=== PATIENT | female | born 1935 | race Caucasian/White ===

== ENCOUNTER 2017-02-10 20:17 | Inpatient (IN) | payer OTHER ==
[~2017-02-10] VITALS: Ht 162.6 cm; Wt 79.8 kg
--- NOTE | 2017-02-10 20:25 | NUR ---
DR KELLY AT BEDSIDE FOR MSE.
[2017-02-10 21:17] LABS: BASOPHIL % 0.7 % (0-2); PLATELET COUNT 363 x10^3mcL (130-400)
[2017-02-10 21:27] LABS: RED CELL DISTRIBUTION WIDTH 16.6 % (11.5-14.5)
[2017-02-10 21:31] LABS: CALCIUM 8.6 mg/dL (8.5-10.1); CARBON DIOXIDE 23.7 mmol/L (21-32); CHLORIDE SERUM 103 mmol/L (98-107); GLUCOSE SERUM 125 mg/dL (74-106); POTASSIUM SERUM 4.2 mmol/L (3.5-5.1); SODIUM SERUM 136 mmol/L (136-145)
[2017-02-10 21:35] LABS: ALBUMIN 3.5 g/dL (3.4-5.0); ALKALINE PHOSPHATASE 77 U/L (46-116); ALT/SGPT 27 U/L (14-59); AST/SGOT 18 U/L (15-37); BILIRUBIN TOTAL 0.53 mg/dL (0.20-1.00); TOTAL PROTEIN, SERUM 7.3 g/dL (6.4-8.2)
--- NOTE | 2017-02-10 21:49 | NUR ---
PT MEDICATED PER DR KELLY ORDERS. PT EDUCATED ON MED AND DENIES ANY ALLERGIES TO MED. PT IV SITE PATENT NO COMPLICATIONS NOTED. PT SLEEPING BUT EASILY AWAKEN WHEN CALLING NAME. DAUGHTER AT BEDSIDE. CALL LIGHT PLACED WITHIN REACH. NO SX OF DISTRESS NOTED AT THIS TIME.
--- NOTE | 2017-02-10 22:40 | NUR ---
PT GIVEN MEDS PER DR KELLY. PT ALERT AND AWAKE TALKING TO DAUGHTER AT BEDSIDE. NO SX OF DISTRESS NOTED AT THIS TIME. PT STILL ON FULL CM, COMFORT MEASURS IN PLACE.
[2017-02-10 23:24] LABS: UA SPECIFIC GRAVITY <=1.005 (1.005-1.035); microscopic required? YES; urine erythrocyte 1+ (NEGATIVE)
[2017-02-10] MEDS ORDERED: LOSARTAN POTASS25 M1 PO (23:44)
[2017-02-10] MEDS ORDERED: METFORMIN HYDRO1 POW PO (23:44)
[2017-02-10] MEDS ORDERED: [UNRECOGNIZED DRUG - OTHER] PO (23:44)
[2017-02-10] MEDS ORDERED: AMARYL4 MG PO (23:44)
--- NOTE | 2017-02-10 23:53 | NUR ---
ADMISSION REPORT GIVEN TO SADAF SUAREZ TO CONTINUE CARE AT EXT [id number]
--- NOTE | 2017-02-11 00:07 | NUR ---
PT GIVEN PO AND IV MED PER DR FRITZ ORDERS. PT EDUCATED ON MED AND VERBALIZES UNDERSTANDING OF TEACHING. PT DENIES ALLERGIES TO MED. PT AAOX4, BREATHING WITHOUT DIFFICULTY. IV SITE PATENT WITH NO COMPLICATIONS NOTED. DAUGHTER AT BEDSIDE.
[2017-02-11 00:23] LABS: MAGNESIUM 1.6 mg/dL (1.8-2.4); PHOSPHOROUS 3.1 mg/dL (2.5-4.9)
[2017-02-11 00:24] LABS: CHOLESTEROL/HDL RATIO 3.9
--- NOTE | 2017-02-11 00:30 | NUR ---
RECEIVED PT FROM ED VIA [facility], CAME IN DUE TO PALPITATIONS. AAOX4. C/O MILD DIZZINESS. ABLE TO FOLLOW COMMANDS. SPEECH IS CLEAR. NO SOB NOTED, PLACED ON 2LPM/NC, O2 SAT=93%. LUNG SOUNDS CTA. DENIES CHEST PAIN/PRESSURE, AFIB, HR AT 146 ON THE MONITOR. C/O PALPITATIONS. C/O MILD NAUSEA. DENIES ABDOMINAL PAIN. IV SITE PATENT AND INTACT. NOTED PT HAS MILD ANXIETY. DAUGHTER AT BEDSIDE. SIDE RAILS UPX2. CALL LIGHT ON REACH. ENDORSED
[2017-02-11 00:32] VITALS: BP 126/75
[2017-02-11] MEDS ORDERED: LANTUS100 U/ML SQ (00:33)
[2017-02-11 00:34] LABS: FREE T4 1.29 ng/dL (0.76-1.46)
[2017-02-11] MEDS ORDERED: ATIVAN0.5 M1 PO (00:36)
[2017-02-11 00:38] VITALS: Ht 162.6 cm; Wt 79.8 kg
[2017-02-11 02:55] LABS: T3 TOTAL 0.98 ng/mL
[2017-02-11 05:57] VITALS: BP 130/70
[2017-02-11 06:02] LABS: BASOPHIL % 0.7 % (0-2); PLATELET COUNT 344 x10^3mcL (130-400)
--- NOTE | 2017-02-11 07:07 | NUR ---
SPOKE WITH DR. BOYD REGARDING FLUCTUATING RAPID HEART RATE. PER MD, NO CHANGE AT THIS TIME AND SHE WILL WAIT UNTIL WHOLESALE DIAMOND BROKER COMES TO SEE PATIENT BEFORE MAKING ANY MEDICATION CHANGES.
[2017-02-11 07:10] LABS: CARBON DIOXIDE 24.2 mmol/L (21-32); CHLORIDE SERUM 104 mmol/L (98-107); CREATININE SERUM 0.8 mg/dL (0.6-1.0); GLUCOSE SERUM 178 mg/dL (74-106); MAGNESIUM 1.6 mg/dL (1.8-2.4); PHOSPHOROUS 3.3 mg/dL (2.5-4.9); POTASSIUM SERUM 4.1 mmol/L (3.5-5.1); SODIUM SERUM 138 mmol/L (136-145)
--- NOTE | 2017-02-11 08:00 | NUR ---
PT RECEIVED IN BED ALERT AND ORIENTED*4.NO ACUTE DISTRESS NOTED.CARE ASSURED.ISOLATION FOR MRSA WOUND HX.VSS.AFIB ON MONITOR @ 110-130HR.PT ON 02 @ 2L VIA N/C.SKIN WARM AND DRY TO TOUCH.NEEDS ARE BEING MET. CALL LIGHT WITHIN REACH.BED IN LOW SAFE POSITION.
[2017-02-11 09:28] VITALS: BP 124/62
[2017-02-11 13:53] VITALS: BP 154/58
--- NOTE | 2017-02-11 14:16 | NUR ---
PT IN BED RESTING AT THIS TIME.FAMILY AT BEDSIDE SUPPORTIVE.VSS.AFEBRILE.ABT IN PROGRESS.2GM MAGNESIUM GIVEN ORDERED.PT ANXOIUS ABOUT GOING HOME AT THIS TIMES.PLAN OF CARE REITERATED WITH PT.
[2017-02-11 17:35] VITALS: BP 135/65
--- NOTE | 2017-02-11 18:00 | NUR ---
PT ALERT AND AT TIMES FORGETFUL.FOUND IN ROOM OPPOSITE TO HER'S BRUSHING HER TEETH IN THE BATHROOM.PT RE-ORIENTED TO PLACE AND SITUATION.NO FALL OR INJURY NOTED.CALL LIGHT PROVIDED AND PT TAUGHT TO CALL FOR ASSIST AT ALL TIMES.
--- NOTE | 2017-02-11 19:30 | NUR ---
SEEN IN BED AAOX4. USING I.S. NOTED 1500 VOLUME. DENIES PAIN. BREATHING EASY ON ROOM AIR. AFIB AT 129. DENIES PALPITATION. IVF NS TO LT HAND INFUSING WELL. PLAN OF CARE DISCUSSED. CALL LIGHT PLACED WITHIN EASY REACH. SIDERAILS UP X2. SCD TO BLE INPLACED.
[2017-02-11 21:46] VITALS: BP 141/60
--- NOTE | 2017-02-11 22:06 | NUR ---
BEDTIME MEDS GIVEN. TYLENOL PO GIVEN PER PATIENT'S REQUESTED FOR SLEEPING. WILL CONTINUE TO MONITOR.
[2017-02-12 04:00] VITALS: BP 146/65
--- NOTE | 2017-02-12 04:00 | NUR ---
PATIENT CALLED STS THAT SHE IS NOT FEELING WELL. SEEN PATIENT STANDING INSIDE THE ROOM APPEARS VERY ANXIOUS AND CRYING. DENIES CHEST PAIN. ASKED TO CALL HER DAUGHTER ARIAN. [facility] "I CAN'T BE HERE PLEASE OPEN THE WINDOW I WANT TO GO OUTSIDE I HAVE CLAUSTROPHOBIA" EMOTIONAL SUPPORT GIVEN TO PATIENT. FSBS AT BEDSIDE CHECKED =202. REFUSED MEDICATION OFFERRED FOR ANXIETY. V/S CHECKED BP 146/65, HR 152, RR 24,O2SAT 94% ON ROOM AIR, AFEBRILE.
--- NOTE | 2017-02-12 05:00 | NUR ---
PATIENT'S DAUGHTER JONATHAN IS HERE AT BEDSIDE TO COMFORT PATIENT.
--- NOTE | 2017-02-12 06:58 | NUR ---
RESTING WITH EYES CLOSE AT THIS TIME. DAUGHTER AT BEDSIDE.
--- NOTE | 2017-02-12 07:30 | NUR ---
RECEIVED PATIENT SITTING UP IN BED A/O X3, CLEAR SPEECH, DENIES SANTOS OR DIZZINESS. TELE # [address], DENIES CHEST PAIN OR PALPITATIONS. BREATHING EVEN UNLABBORED ON RA, DENIES SOB, NO DISTRESS NOTED. SKIN IS WARM CDI WITH IV TO LH INTACT INFUSING NS AT 100 ML/HR FREE FROM REDNESS AND INFILTRATION. PATIENT NOTED TO BE ANXIOUS AT TIMES, STATES SHE WANTS TO GO HOME TODAY. DAUGHTER JONATHAN AT BEDSIDE. ALL NEEDS ATTENDED TO. SAFETY PRECAUTIONS MAINTAINED. CALL LIGHT WITHIN REACH. BED IN LOW POSITION. WILL MONITOR.
--- NOTE | 2017-02-12 08:54 | NUR ---
ROUNDS MADE- DR. BURGOS, RESIDENT TEAM, CHARGE NURSE AND PRIMARY NURSE AT BEDSIDE. POC REVIEWED WITH PATIENT AND DAUGHTER AT BEDSIDE. PATIENTS HR IN 120'S, WILL HAVE QUARRYING SPECIALIST CONSULT TODAY PENDING FURTHER EVALUATION. ALL QUESTIONS AND CONCERNS ADDRESSED. WILL MONITOR.
[2017-02-12 10:18] VITALS: BP 127/62
--- NOTE | 2017-02-12 12:15 | NUR ---
PATIENT SITTING UP IN CHAIR AT BEDSIDE. DAUGHTER REMAINS AT BEDSIDE WELL. DUE MEDS GIVEN, TOLERATED WELL. ALL NEEDS ATTENDED TO. WILL MONITOR.
[2017-02-12 13:57] VITALS: BP 138/73
--- NOTE | 2017-02-12 15:48 | NUR ---
ATIVAN 0.5 MG PO GIVEN AT THIS TIME FOR ANXIETY. DR. WATSON AWARE PATIENT IS STILL AFIB WITH HR IN 140'S, NO NEW ORDERS RECEIVED. FAMILY AT BEDSIDE. WILL MONITOR.
--- NOTE | 2017-02-12 16:00 | NUR ---
DR. WATSON AT BEDSIDE TO SPEAK WITH PATIENT AND DAUGHTER JONATHAN REGARDING PATIENTS HOME MEDICATION. ALL QUESTIONS AND CONCERNS ADDRESSED.
[2017-02-12 18:01] VITALS: BP 139/83
--- NOTE | 2017-02-12 18:16 | NUR ---
RECEIVED CALL FROM [employer], STATED PATIENTS HR IS IN THE 150'S. WENT TO ASSESS PATIENT, PATIENT IS IN RESTROOM AT THIS TIME. WILL REASSESS PATIENTS BP AND HR ONCE DONE. DR. WATSON MADE AWARE.
--- NOTE | 2017-02-12 18:24 | NUR ---
PATIENT SITTING UP AT EDGE OF BED AFTER BRUSHING TEETH IN RESTROOM. ASSESSED PATIENTS VS, BP 137/87 HR 110. PATIENT DENIES ANY CHEST PAIN OR PALPITATIONS FAMILY AT BEDSIDE. ALL NEEDS ATTENDED TO DURING SHIFT. WILL ENDORSE CARE TO ONCOMING NURSE.
[2017-02-12 18:26] VITALS: BP 137/87
--- NOTE | 2017-02-12 18:58 | NUR ---
DIGOXIN IVP (SEE eMAR) GIVEN PER DR. BEAL ORDER FOR HR 120-125. PER DR. VICKERS, GIVE DIGOXIN IVP Q4H TIMES TWO DOSES. PATIENT RESTING IN BED COMFORTABLY, NO DISTRESS NOTED. WILL ENDORSE CARE TO ONCOMING NURSE.
--- NOTE | 2017-02-12 19:10 | NUR ---
PATIENT RECEIVED AWAKE, ALERT, AND ORIENTED X 3. DAUGHTER IN LAW AT BEDSIDE. NO DISTRESS NOTED. PATIENT DENIES CHEST PAIN OR SOB. IV SITE TO LEFT HAND, PATENT AND INTACT. IV FLUID INFUSING PER DOCTOR'S ORDER. BED IN LOWEST POSITION. CALL LIGHT WITHIN REACH. WILL CONTINUE TO MONITOR.
[2017-02-12 20:34] VITALS: BP 142/71
--- NOTE | 2017-02-13 05:01 | NUR ---
PATIENT RESTED IN INTERVALS THROUGHOUT THE NIGHT. NO DISTRESS NOTED. NO C/O PAIN OR SOB. ALL NEEDS MET. SAFETY AND COMFORT MEASURES MAINTAINED. BED IN LOWEST POSITION. CALL LIGHT WITHIN REACH. WILL CONTINUE TO MONITOR AND ENDORSE TO NEXT SHIFT NURSE.
[2017-02-13 05:34] VITALS: BP 151/85
[2017-02-13 07:05] LABS: BASOPHIL % 0.6 % (0-2); PLATELET COUNT 386 x10^3mcL (130-400)
[2017-02-13 07:07] LABS: RED CELL DISTRIBUTION WIDTH 16.4 % (11.5-14.5)
--- NOTE | 2017-02-13 07:30 | NUR ---
RECEIVED PATIENT SITTING UP IN BED A/O X3, CLEAR SPEECH, ABLE TO MAKE NEEDS KNOWN AND FOLLOW COMMANDS. TELE # [address], DENIES CHEST PAIN OR PALPITATIONS. BREATHING EVEN UNLABBORED ON RA, DENIES SOB, NO DISTRESS NOTED. SKIN IS WARM CDI WITH IV TO LH INTACT INFUSING NS AT 10 ML/HR FREE FROM REDNESS AND INFILTRATION. PATIENT IS CALM WITH CARE AT THIS TIME, DAUGHTER JONATHAN REMAINS AT BEDSIDE. SAFETY PRECAUTIONS MAINTAINED, ALL NEEDS ATTENDED TO. WILL MONITOR.
[2017-02-13 07:33] LABS: CALCIUM 9.2 mg/dL (8.5-10.1); CARBON DIOXIDE 28.4 mmol/L (21-32); CHLORIDE SERUM 104 mmol/L (98-107); CREATININE SERUM 0.9 mg/dL (0.6-1.0); GLUCOSE SERUM 106 mg/dL (74-106); MAGNESIUM 1.7 mg/dL (1.8-2.4); PHOSPHOROUS 4.2 mg/dL (2.5-4.9); POTASSIUM SERUM 4.4 mmol/L (3.5-5.1); SODIUM SERUM 142 mmol/L (136-145)
[2017-02-13] MEDS ORDERED: LEVAQUIN750 MG PO (08:53)
[2017-02-13] MEDS ORDERED: XARELTO20 M1 PO (08:54)
[2017-02-13] MEDS ORDERED: LIPI10 PO (08:55)
[2017-02-13] MEDS ORDERED: DIG125 PO (08:55)
[2017-02-13] MEDS ORDERED: BET80 PO (08:56)
[2017-02-13] MEDS ORDERED: CAR60 PO (08:57)
[2017-02-13] MEDS ORDERED: LAC PO (08:58)
[2017-02-13 09:49] VITALS: BP 123/72
[2017-02-13 11:55] VITALS: BP 123/72
--- NOTE | 2017-02-13 12:00 | NUR ---
PATIENT SITTING UP IN CHAIR AT BEDSIDE, DUE MEDS GIVEN TOLERATED WELL. PATIENT IS BEING DISCHARGED HOME TODAY. PER PATIENT HER DAUGHTER WILL BE IN AFTER LUNCH TO PICK HER UP AND TAKE HER HOME. WILL FOLLOW UP WITH DISCHARGE ORDERS.
--- NOTE | 2017-02-13 13:10 | NUR ---
PATIENT IS BEING DISCHARGED HOME PER MD ORDER. DISCHARGE INSTRUCTIONS GIVEN TO PATIENT, VERBALIZED UNDERSTANDNG TO FOLLOW UP WITH PCP ON 02/16/17 AT 1130. ALL QUESTIONS AND CONCERNS ADDRESSED. PATIENT CALLED DAUGHTER JONATHAN TO PICK HER UP, JONATHAN WILL BE HERE SOON. NOTIFIED PATIENT TO CALL STAFF WHEN DAUGHTER ARRVIES. WILL CONTINUE TO MONITOR.
--- NOTE | 2017-02-13 14:13 | NUR ---
ECHO DONE, DAUGHTER JONATHAN AT BEDSIDE. PATIENT TO BE DISCHARGED HOME PER MD ORDER. IV TO LH REMOVED CATH INTACT. ID BANDS REMOVED, TELE MONITOR REMOVED. PATIENT ASSISTED DOWN TO LOBBY VIA WHEELCHAIR ACCOMPANIED BY NURSE AID AND DAUGHTER. ALL PERSONAL BELONGINGS SENT HOME WITH PATIENT.
[2017-02-13] MEDS ORDERED: MAGNESIUM OXID400 MG PO (16:52)
== END 2017-02-13 14:10 | disposition home or self-care (01) | DRG 177 ==
LOC: ED 20:17 → DU 23:18
PROVIDERS: Emergency Medicine; Family Medicine Sports Medicine; ADMIT Student in an Organized Health Care Education/Training Program
DX: J69.0 Pneumonitis due to inhalation of food and vomit (principal); J96.01 Acute respiratory failure with hypoxia; I50.43 Acute on chronic combined systolic (congestive) and diastolic (congestive) heart failure; N39.0 Urinary tract infection, site not specified; E44.1 Mild protein-calorie malnutrition; I11.0 Hypertensive heart disease with heart failure; E11.9 Type 2 diabetes mellitus without complications; I48.91 Unspecified atrial fibrillation; E83.42 Hypomagnesemia; F41.9 Anxiety disorder, unspecified; E66.9 Obesity, unspecified; Z79.4 Long term (current) use of insulin; Z83.3 Family history of diabetes mellitus; Z68.30 Body mass index [BMI] 30.0-30.9, adult; Z90.49 Acquired absence of other specified parts of digestive tract
CPT/HCPCS: 82962; 83880; 84439; 94150; J0696; J1160; J1815; J1940; J2543; J3475; J3490; J7030; J7620; Q0092

== ENCOUNTER 2018-03-24 01:18 | Inpatient (IN) | payer OTHER ==
[~2018-03-24] VITALS: Ht 162.6 cm; Wt 76.2 kg
[~2018-03-24 01:18] MED LIST: AMARYL4 MG PO; ATIVAN0.5 M1 PO; BET80 PO; CAR60 PO; DIG125 PO; LAC PO; LANTUS100 U/ML SQ; LEVAQUIN750 MG PO; LIPI10 PO; LOSARTAN POTASS25 M1 PO; MAGNESIUM OXID400 MG PO; METFORMIN HYDRO1 POW PO; XARELTO20 M1 PO; [UNRECOGNIZED DRUG - OTHER] PO
[2018-03-24] MEDS ORDERED: FUROSEMIDE40 MG PO (01:37)
[2018-03-24] MEDS ORDERED: METFORMIN HCL1000 MG PO (01:37)
[2018-03-24] MEDS ORDERED: DILTIAZEM HCL120 M2 PO (01:38)
[2018-03-24 02:38] LABS: FREE T4 1.18 ng/dL (0.76-1.46)
[2018-03-24 03:02] LABS: PLATELET COUNT 327 x10^3mcL (130-400)
[2018-03-24 03:04] LABS: CARBON DIOXIDE 26.8 mmol/L (21-32); CHLORIDE SERUM 101 mmol/L (98-107); CREATININE SERUM 0.8 mg/dL (0.6-1.0); GLUCOSE SERUM 241 mg/dL (74-106); POTASSIUM SERUM 3.9 mmol/L (3.5-5.1); RED CELL DISTRIBUTION WIDTH 15.3 % (11.5-14.5); SODIUM SERUM 137 mmol/L (136-145)
[2018-03-24 03:11] LABS: ALBUMIN 3.7 g/dL (3.4-5.0); ALKALINE PHOSPHATASE 301 U/L (46-116); ALT/SGPT 183 U/L (14-59); AST/SGOT 163 U/L (15-37); BILIRUBIN TOTAL 1.53 mg/dL (0.20-1.00)
[2018-03-24 03:12] LABS: TOTAL PROTEIN, SERUM 8.5 g/dL (6.4-8.2)
[2018-03-24 03:28] LABS: BAND NEUTROPHIL 4 % (0-10); BASOPHIL 0 % (0-2); MONOCYTE 2 % (0-7); SEGMENTED NEUTROPHILS 90 % (37-75); rbc morphology (normal/abnorm) NORMAL (NORMAL)
[2018-03-24 04:48] LABS: UA SPECIFIC GRAVITY 1.015 (1.005-1.035); microscopic required? YES; urine erythrocyte 1+ (NEGATIVE)
[2018-03-24 05:49] VITALS: BP 144/77
[2018-03-24 05:59] VITALS: Ht 162.6 cm; Wt 76.2 kg
[2018-03-24 07:25] VITALS: BP 98/57
[2018-03-24 11:40] VITALS: BP 91/58
[2018-03-24 15:45] VITALS: BP 89/64
[2018-03-24 19:20] VITALS: BP 113/54
[2018-03-25] VITALS (7 sets, daily range): BP systolic 106–148; BP diastolic 56–118
[2018-03-25 05:37] LABS: BASOPHIL % 0.3 % (0-2); PLATELET COUNT 330 x10^3mcL (130-400)
[2018-03-25 07:45] LABS: CALCIUM 8.7 mg/dL (8.5-10.1); CARBON DIOXIDE 30.7 mmol/L (21-32); CHLORIDE SERUM 106 mmol/L (98-107); CREATININE SERUM 0.6 mg/dL (0.6-1.0); GLUCOSE SERUM 61 mg/dL (74-106); MAGNESIUM 1.7 mg/dL (1.8-2.4); POTASSIUM SERUM 3.8 mmol/L (3.5-5.1); SODIUM SERUM 142 mmol/L (136-145)
[2018-03-26] VITALS (8 sets, daily range): BP systolic 111–150; BP diastolic 51–80
[2018-03-26 06:32] LABS: BASOPHIL % 0.5 % (0-2); PLATELET COUNT 331 x10^3mcL (130-400)
[2018-03-26 06:39] LABS: CALCIUM 9.2 mg/dL (8.5-10.1); CARBON DIOXIDE 32.1 mmol/L (21-32); CHLORIDE SERUM 98 mmol/L (98-107); CREATININE SERUM 0.6 mg/dL (0.6-1.0); GLUCOSE SERUM 140 mg/dL (74-106); MAGNESIUM 1.8 mg/dL (1.8-2.4); POTASSIUM SERUM 3.6 mmol/L (3.5-5.1); SODIUM SERUM 137 mmol/L (136-145)
[2018-03-26 06:42] LABS: RED CELL DISTRIBUTION WIDTH 15.3 % (11.5-14.5)
[2018-03-26] MEDS ORDERED: CARCD120 PO (16:52)
[2018-03-26] MEDS ORDERED: DOXYCYCLINE MO100 MG PO (16:53)
[2018-03-27 06:15] VITALS: BP 121/59
[2018-03-27 07:11] LABS: CALCIUM 8.9 mg/dL (8.5-10.1); CARBON DIOXIDE 32.1 mmol/L (21-32); CHLORIDE SERUM 103 mmol/L (98-107); CREATININE SERUM 0.7 mg/dL (0.6-1.0); GLUCOSE SERUM 203 mg/dL (74-106); POTASSIUM SERUM 4.2 mmol/L (3.5-5.1); SODIUM SERUM 139 mmol/L (136-145)
[2018-03-27 07:30] LABS: BASOPHIL % 0.9 % (0-2); PLATELET COUNT 337 x10^3mcL (130-400); RED CELL DISTRIBUTION WIDTH 15.4 % (11.5-14.5)
[2018-03-27 09:30] VITALS: BP 147/68
[2018-03-27 10:31] VITALS: BP 147/68
[2018-03-27 12:28] VITALS: BP 135/73
== END 2018-03-27 16:01 | disposition home health service (06) | DRG 871 ==
LOC: ED 01:18 → DU 04:39 → IC 04:39 → DU 03-25 14:49
PROVIDERS: Emergency Medicine; Internal Medicine Pulmonary Disease
DX: A41.9 Sepsis, unspecified organism (principal); J96.01 Acute respiratory failure with hypoxia; I50.43 Acute on chronic combined systolic (congestive) and diastolic (congestive) heart failure; E87.2 Acidosis; I48.2 Chronic atrial fibrillation; E11.9 Type 2 diabetes mellitus without complications; I08.1 Rheumatic disorders of both mitral and tricuspid valves; I11.0 Hypertensive heart disease with heart failure; Z66 Do not resuscitate; E83.42 Hypomagnesemia; J20.9 Acute bronchitis, unspecified; Z88.5 Allergy status to narcotic agent; Z88.1 Allergy status to other antibiotic agents; Z88.8 Allergy status to other drugs, medicaments and biological substances; Z99.81 Dependence on supplemental oxygen
CPT/HCPCS: 82962; 83880; 84439; 94150; 97110-GP; 97116-GP; J0456; J0610; J0696; J1815; J2543; J3370; J3475; J3490; J7030; J7040; J7050; Q0092; Q0163; Q9967

== ENCOUNTER 2018-05-11 22:39 | Emergency (ER) | payer OTHER ==
[~2018-05-11] VITALS: Ht 162.6 cm; Wt 86.2 kg
[~2018-05-11 22:39] MED LIST changes: +CARCD120 PO; +DILTIAZEM HCL120 M2 PO; +DOXYCYCLINE MO100 MG PO; +FUROSEMIDE40 MG PO; +METFORMIN HCL1000 MG PO
[2018-05-11 22:43] VITALS: Ht 162.6 cm; Wt 86.2 kg
[2018-05-11 23:45] VITALS: BP 166/92
== END 2018-05-11 23:45 | disposition short-term general hospital (02) ==
LOC: ED 22:39
DX: I48.91 Unspecified atrial fibrillation (principal); Z88.6 Allergy status to analgesic agent
CPT/HCPCS: 82962; J2405; J3490

== ENCOUNTER 2018-06-14 04:55 | Inpatient (IN) | payer OTHER ==
[~2018-06-14] VITALS: Ht 162.6 cm; Wt 70.4 kg
[2018-06-14 04:59] VITALS: Ht 162.6 cm; Wt 70.4 kg
[2018-06-14 05:15] LABS: BASOPHIL % 0.9 % (0-2); PLATELET COUNT 316 x10^3mcL (130-400)
[2018-06-14 05:16] LABS: RED CELL DISTRIBUTION WIDTH 15.1 % (11.5-14.5)
--- NOTE | 2018-06-14 05:21 | NUR ---
PT BIB [facility] FROM [facility] FOR C/O OF CP AND ABD PAIN. [facility] PTS CP AND ABD PAIN STARTED APPROX 5 HRS AGO. PER MEDICS PT WAS GIVEN TYLENOL APPROX 2 HRS AGO WITH MINIMAL RELIEF OF SYMPOMS. PER MEDICS THEY GAVE 324MG OF ASPIRIN, AND 0.4MG OF NITRO SL. UPON ARRIVAL PT COMPLAINING OF C/O CHEST PAIN AND ABD PAIN FOR APPROX 5 HRS. PT STATES THAT HER CP IS ON THE L SIDE OF HER CHEST AND HER ABD PAIN IS IN THE LUQ. PT RATES HER PAIN 4/10. PT ALSO COMPLAINING OF SOB. INSPIRATORY WHEEZES HEARD BILATERALLY ON AUSCULTATION OF THE LUNGS. PT PLACED ON FULL PHOTOVOLTAIC PANEL INSTALLER. A-FIB NOTED AT A RATE OF 139. IRREGULAR HEART BEAT NOTED ON AUSCULTATION OF APICAL PULSE. PT IS A/O X4. RESP EQUAL AND UNLABORED. NO ACUTE DISTRESS NOTED.
[2018-06-14 05:24] LABS: CARBON DIOXIDE 25.7 mmol/L (21-32); CHLORIDE SERUM 100 mmol/L (98-107); CREATININE SERUM 0.9 mg/dL (0.6-1.0); GLUCOSE SERUM 173 mg/dL (74-106); POTASSIUM SERUM 4.4 mmol/L (3.5-5.1); SODIUM SERUM 136 mmol/L (136-145)
[2018-06-14 05:28] LABS: ALKALINE PHOSPHATASE 126 U/L (46-116); ALT/SGPT 29 U/L (14-59); AST/SGOT 21 U/L (15-37); BILIRUBIN TOTAL 0.47 mg/dL (0.20-1.00); TOTAL PROTEIN, SERUM 6.8 g/dL (6.4-8.2)
[2018-06-14 05:29] LABS: ALBUMIN 3.2 g/dL (3.4-5.0)
--- NOTE | 2018-06-14 05:36 | NUR ---
PT MEDICATED PER EMAR IN AN UPRIGHT POSITION.
--- NOTE | 2018-06-14 05:50 | NUR ---
PT ASKING IF SHE WILL STAY IN THE HOSPITAL. PT STATES " I DO NOT WANT TO GO BACK TO [facility]". WHEN ASKED WHY SHE DOES NOT WANT TO GO BACK TO [facility] PT STATES " I CAN'T TELL, PLEASE, PLEASE DON'T MAKE ME GO BACK." PT A/O X4.
--- NOTE | 2018-06-14 06:02 | NUR ---
SPOKE TO JONATHAN (DAUGHTER) AT [phone] AND INFORMED HER PT DID NOT WANT TO GO BACK TO [facility]. JONATHAN WAS ALREADY AWARE THAT PT IS UNHAPPY WITH THE CARE SHE IS RECIEVING AT [facility] AND IS LOOKING INTO ANOTHER FACILITY FOR PT TO STAY.
[2018-06-14] MEDS ORDERED: LIPI20 PO ×2 (07:04→14:38)
[2018-06-14] MEDS ORDERED: ASPIR 8181 MG PO (07:07)
[2018-06-14] MEDS ORDERED: CARVEDILOL6.25 M1 PO ×2 (07:07→14:39)
[2018-06-14] MEDS ORDERED: METP PO (07:08)
[2018-06-14] MEDS ORDERED: LANTUS SOLOS100 U/M1 SQ ×2 (07:08→14:39)
[2018-06-14] MEDS ORDERED: MIRALAX17 GM/Dose PO ×2 (07:09→14:40)
[2018-06-14] MEDS ORDERED: CYMBALTA20 M1 PO (07:09)
[2018-06-14] MEDS ORDERED: NORCO1 TA2 PO ×2 (07:10→14:41)
[2018-06-14] MEDS ORDERED: APAP500 MG (07:14)
[2018-06-14] MEDS ORDERED: MOM PO ×2 (07:14→14:38)
[2018-06-14] MEDS ORDERED: DUL10S (07:15)
[2018-06-14] MEDS ORDERED: FLEET ENEMA135 ML RC (07:15)
[2018-06-14] MEDS ORDERED: XOPENEX1.25 MG/3 NEB ×2 (07:16→14:41)
--- NOTE | 2018-06-14 07:30 | NUR ---
PT IS AWAKE AND ALERT. PT DENIES C/P AT THIS TIME. PT ON FULL CM. PT VITALS STABLE AT THIS TIME. PT MOVED TO [facility] TO URINATE AND PLACED BACK IN BED. RESP E/U
--- NOTE | 2018-06-14 08:20 | NUR ---
ORDERED A CARDIAC DIET WITH VERBAL ORDERS FROM DR CHUN
--- NOTE | 2018-06-14 08:57 | NUR ---
PT GIVEN BREAKFAST TRAY
--- NOTE | 2018-06-14 09:05 | NUR ---
PT ACCIDENTLY DISLODGED IV. SMALL HEMATOMA FORMING, PRESSURE BANDAGE PLACED. WILL REPLACE IV.
--- NOTE | 2018-06-14 09:55 | NUR ---
PT MEDICATED PER DOCTORS ORDERS
--- NOTE | 2018-06-14 11:32 | NUR ---
PER PT FAMILY, PT IS ON A SOFT FOOD DIET AT HER [facility]. PT UNABLE TO EAT BREAKFAST TRAY PROVIDED BUT DID DRINK ORANGE JUICE. DR CHUN PAGED TO NOTIFY OF DIET MODIFICATION.
--- NOTE | 2018-06-14 13:10 | NUR ---
RECEIVED PT FROM ED VIA [facility], CAME IN DUE TO RAPID AFIB. PT IS AAOX4. DENIES HEADACHE/DIZZINESS. W/ LEFT FACIAL DROOP AND LEFT SIDED WEAKNESS. ABLE TO FOLLOW COMMANDS. NO SOB NOTED, LUNG SOUNDS DIMINISHED ON THE BASES, O2 SAT=97% ON 2LPM/NC. DENIES CHEST PAIN/PRESSURE, HR AT 118 ON THE MONITOR, AFIB. DENIES ABDOMINAL DISCOMFORT. BOWEL SOUNDS ACTIVE. IV SITE ON THE RIGHT HAND IS PATENT AND INTACT. W/ GREENISH DISCOLORATION ON THE RIGHT HAND, PT REFUSED FOR PICTURE TO BE TAKEN AT THIS TIME. PT APPEARS TO BE VERY AGITATED, STATED THAT SHE IS VERY CLAUSTROPHIC. DR. CHUN AT BEDSIDE AND ASSESSED THE PT. PT STATED THAT SHE IS NOT ALLERGIC TO ATIVAN. SIDE RAILS UPX2. CALL LIGHT ON REACH. HOB ELEVATED AT 45 DEG. BED ALARM ON. WILL CONT TO MONITOR
[2018-06-14 14:01] VITALS: BP 141/87
[2018-06-14] MEDS ORDERED: APAP500 MG PO (14:37)
[2018-06-14] MEDS ORDERED: DUL10S RC (14:38)
[2018-06-14] MEDS ORDERED: GOOD SENSE ASPI81 M3 PO (14:39)
[2018-06-14] MEDS ORDERED: DULOXETINE30 MG PO (14:40)
[2018-06-14] MEDS ORDERED: METAMUCIL660 GM PO (14:40)
[2018-06-14] MEDS ORDERED: PROVIGIL100 MG PO (14:41)
--- NOTE | 2018-06-14 14:51 | NUR ---
PT HAS HER EYES CLOSED, NO S/S OF PAIN AND SOB. BREATHING IS EVEN AND UNLABORED. WILL CONT TO MONITOR.
--- NOTE | 2018-06-14 16:16 | NUR ---
PT DROWSY AT THIS TIME, HAS HER EYES CLOSED, OPENS EYES TO TOUCH. BREATHING EVEN AND UNLABORED. WILL CONT TO MONITOR
[2018-06-14 16:59] VITALS: BP 126/79
--- NOTE | 2018-06-14 17:05 | NUR ---
AFO WAS FITTED AND IS AT THE BEDSIDE. PT IS MORE AWAKE BUT STILL A LITTLE DROWSY. ABLE TO FOLLOW COMMANDS. WILL CONT TO MONITOR
--- NOTE | 2018-06-14 17:55 | NUR ---
PT IS AWAKE, ORIENTED X3, ABLE TO FOLLOW COMMANDS. NO SOB/PAIN NOTED. PT CLEANED AND MADE COMFORTABLE. GOWN AND LINENS CHANGED. DAUGHTER AT BEDSIDE. WILL CONT TO MONITOR.
--- NOTE | 2018-06-14 19:03 | NUR ---
BEDSIDE REPORT GIVEN TO YELENA FOR CONTINUITY OF CARE
--- NOTE | 2018-06-14 19:06 | NUR ---
DR. SALDAÑA IS PAGED TO MADE AWARE THAT D-DIMER IS 1220. WAITING FOR CALLBACK
--- NOTE | 2018-06-14 19:08 | NUR ---
DR. SALDAÑA MADE AWARE THAT D-DIMER IS 1220, RECEIVED AN ORDER FOR [facility] TO R/O PE
--- NOTE | 2018-06-14 19:44 | NUR ---
PT IS A/O X 4. FAMILY IS AT THE BEDSIDE. ON TELE #3. ON 2L O2 VIA NC. DIMINISHED BREATH SOUNDS AISSATOU AT BASES. ACTIVE BOWEL SOUNDS IN ALL QUADRANTS. HEPLOCK ON RAC. WILL CONTINUE TO MONITOR.
[2018-06-14 19:50] VITALS: BP 124/76
--- NOTE | 2018-06-14 22:21 | NUR ---
ADMINISTERED PT'S SCHEDULED MEDICATIONS. PT TOLERATED MEDS WELL. WILL CONTINUE TO MONITOR.
--- NOTE | 2018-06-15 05:45 | NUR ---
PT'S BLOOD SUGAR = 62. RECHECKED BLOOD SUGAR = 55. PT IS AWAKE. OFFERED PT APPLE JUICE. WILL RECHECK BLOOD SUGAR.
[2018-06-15 05:52] VITALS: BP 142/88
--- NOTE | 2018-06-15 06:10 | NUR ---
RECHECKED PT'S BLOOD SUGAR = 99. PT IS AWAKE AND RESTING IN BED. NO ACUTE DISTRESS NOTED.
[2018-06-15 06:18] LABS: CALCIUM 8.9 mg/dL (8.5-10.1); CARBON DIOXIDE 28.5 mmol/L (21-32); CHLORIDE SERUM 105 mmol/L (98-107); CREATININE SERUM 0.7 mg/dL (0.6-1.0); MAGNESIUM 1.7 mg/dL (1.8-2.4); POTASSIUM SERUM 4.1 mmol/L (3.5-5.1); SODIUM SERUM 141 mmol/L (136-145)
[2018-06-15 06:23] LABS: GLUCOSE SERUM 55 mg/dL (74-106)
[2018-06-15 06:32] LABS: BASOPHIL % 0.8 % (0-2); PLATELET COUNT 335 x10^3mcL (130-400); RED CELL DISTRIBUTION WIDTH 14.9 % (11.5-14.5)
--- NOTE | 2018-06-15 06:39 | NUR ---
PT SEEN RESTING IN BED. REPOSITIONED PT TO HER RIGHT SIDE. PT IS ON 2L O2 VIA NC. BREATHING IS EVEN AND UNLABORED. NO ACUTE DISTRESS NOTED AT THIS TIME. WILL ENDORSE CONTINUITY OF CARE TO ONCOMING NURSE.
[2018-06-15 08:31] VITALS: BP 128/75
--- NOTE | 2018-06-15 12:35 | NUR ---
ECHO PENDING. LAST ECHO WAS PERFORMED 03/2018.
--- NOTE | 2018-06-15 12:37 | NUR ---
IV CARDIZEM 10 MG GIVEN TO PT FOR HR [address] DEL VALLE. PER DR DEL VALLE PT ALSO TO RECEIVE CARDIZEM PO. NO RESPRIATORY DSITRESS NOTED. DENIES PAIN.
--- NOTE | 2018-06-15 12:47 | NUR ---
PATIENT ACCUCHECK 173. PHONED DR. HINSON ABOUT BS. DR HINSON STATED TO HOLD INSULIN. DR WATTERS ALSO ORDERED TO ADVANCE PATIENT DIET TO [facility]. PER PATIENT DAUGHTER, PATIENT PREFERRED PUREED. DIET CHANGED TO PUREED.
[2018-06-15 13:08] VITALS: BP 117/62
--- NOTE | 2018-06-15 13:29 | NUR ---
AFTER MULTIPLE ATTEMPTS UNABLE TO SEE PATIENT DUE TO HIGH SD, PER NURSING.
--- NOTE | 2018-06-15 13:37 | NUR ---
PATIENT FAMILY AT BEDSIDE. DISCUSSED CODE STATUS AND DAUGHTER STATED THAT PATIENT IS TO BE FULL CODE AT THIS TIME. DR HINSON PAGED. PATIENT RESTING IN BED, NO RESPIRATORY DISTRESS NOTED, NO SIGNS OF PAIN. CALL LIGHT WITHIN REACH.
--- NOTE | 2018-06-15 13:44 | NUR ---
DR HINSON TELEPHONED AND INFORMED THAT PATIENT WAS GIVEN CARDIZEM IVP PUSH AND CARDIZEM PO ORDERED BY DR. DEL VALLE FOR HR 136. DR HINSON INFORMED THAT DR DEL VALLE MAY TRANSFER PATIENT TO ICU IF HR DOES NOT IMPROVE. DR HINSON ORDERED TO ENTER PATIENT CODE STATUS. ORDER READ BACK, CONFIRMED AND ENTERED.
--- NOTE | 2018-06-15 15:27 | NUR ---
PATIENT IN BED RESTING. DENIES PAIN, DISCOMFORT. NO SIGNS OF SOB. FAMILY AT BEDSIDE. WILL CONTINUE TO MONITOR HR. CALL LIGHT IN REACH, BED IN LOWEST POSITION.
--- NOTE | 2018-06-15 17:00 | NUR ---
PATIENT IN BED RESTING, APICAL PULSE TAKEN PRIOR TO IV PUSH DIGOXIN. 1630 FINGERSTICK IS 213, COVERAGE NEEDED 6 U REGULAR INSULIN.
--- NOTE | 2018-06-15 17:37 | NUR ---
ASSISTED PT TO COMMODE WITH TELEVISION PICTURE TUBE REBUILDER, PT IS 2 PERSON ASSIST, GAIT UNSTEADY, VERY WEAK BUT REFUSES TO USE BEDPAN. PT VOIDED, CLEANED AND ASSISTED BACK TO BED. NO RESPIRATORY DSITRESS NOTED, DENIES PAIN. FAMILY AT BEDSIDE.
[2018-06-15 17:43] VITALS: BP 129/73
--- NOTE | 2018-06-15 18:15 | NUR ---
SPOKE WITH DR DEL VALLE VIA TELEPHONE NOTIFIED ABOUT CARDIZEM AND DIGOXIN EFECTIVENESS. REPORTED HR CONTINUES TO BE 102-112. DR DEL VALLE STATED TO NOTIFY HIM IF HR CONTINUES BE AT OR ABOVE 120. ALSO NOTIFIED ABOUT POTENTIAL ADVERSE REACTION OF ORDERED PO COUMADIN W DAILY MAEVE CYMBALTA. ORDERED TO DC CYMBALTA AND GIVE PO COUMADIN. CHARGE NURSE NOTIFIED, PO COUMADIN ADMINISTERED AND TOLERATED. PATIENT IN BED WITH NO SIGNS OF DISTRESS.
[2018-06-15 19:25] VITALS: BP 136/65
--- NOTE | 2018-06-15 19:25 | NUR ---
RECEIVED PT AWAKE ALERT AND VERBALLY RESPONSIVE WITH SOME SLURRED SPEECH.BREATHING EASY AND NON-LABORED.O2 @ 3L/MIN VIA N/C.DENIES CHESTPAIN.BP 136/65 MMHG,HR 105.L SIDED WEAKNESS.WEAK CORE DRILLING SUPERVISOR TO L ,GOOD TO RIGHT.WEAKNESS TO L LEG BUT ABLE TO MOVE A LITTLE.HANDROLL PROVIDED AT THIS TIME.REPOSITIONED TO HER LEFT SIDE.FAMILY AT BEDSIDE AND SUPPORTIVE OF CARE.WILL CONTINUE TO MONITOR.
--- NOTE | 2018-06-16 04:32 | NUR ---
PT SLEPT WELL ALL NIGHT.BREATHING EASY AND NON-LABORED.BREATHING TX GIVEN BY RT ORDERED.NO COUGHING/CONGESTION NOTED.HR RANGES FROM 90-105 BPM.DENIES CHESTPAIN ALL NIGHT.DAUGHTER AT BEDSIDE AND SUPPORTIVE WITH CARE.WILL CONTINUE TO MONITOR.
[2018-06-16 05:08] VITALS: BP 136/68
[2018-06-16 07:07] LABS: CALCIUM 8.8 mg/dL (8.5-10.1); CARBON DIOXIDE 30.4 mmol/L (21-32); CHLORIDE SERUM 102 mmol/L (98-107); CREATININE SERUM 0.6 mg/dL (0.6-1.0); GLUCOSE SERUM 130 mg/dL (74-106); MAGNESIUM 1.7 mg/dL (1.8-2.4); POTASSIUM SERUM 4.2 mmol/L (3.5-5.1); SODIUM SERUM 139 mmol/L (136-145)
[2018-06-16 07:40] LABS: BASOPHIL % 0.7 % (0-2); PLATELET COUNT 320 x10^3mcL (130-400)
[2018-06-16 07:41] LABS: RED CELL DISTRIBUTION WIDTH 15.2 % (11.5-14.5)
--- NOTE | 2018-06-16 08:09 | NUR ---
MG 1.[address] WATTERS TELEPHONE ORDERED MG 2M IVPB ONCE. ORDER READ BACK, CONFIRMED, AND ENTERED.
[2018-06-16 08:44] VITALS: BP 146/65
--- NOTE | 2018-06-16 10:24 | NUR ---
PATIENT IN BED RESTING. NO COMPLAINTS OF PAIN. FAMILY AT BEDSIDE. PO MEDICATIONS GIVE, TOLERATED. IV INFUSING MAG SULFATE. PATIENT ASSIST WITH BEDPAN. CALL LIGHT IN REACH, FURTHER ASSISTANCE OFFERED.
--- NOTE | 2018-06-16 12:16 | NUR ---
PATIENT IN BED, FAMILY AT BEDSIDE. PATIENT STATES THAT HER ARM "FEELS A LITTLE BETTER". ADDITIONAL COLD COMPRESS APPLIED. SWELLING DECREASED. INFORMED PATIENT AND FAMILY INFILTRATION, FAMILY STATES UNDERSTANDING. WILL DC IV. FURTHER ASSISTANCE OFFERED, CALL LIGHT IN REACH.
--- NOTE | 2018-06-16 12:28 | NUR ---
INFORMED FROM PATIENTS DAUGHTER THAT PATIENT R ARM "FEELS ITCHY". IV SITE FOUND WARM SWOLLEN. INFUSING STOPPED. COLD COMPRESS APPLIED, ARM ELEVATED. WILL REEVALUATE. 1130 FINGERSTICK: 227, 6 U OF REGULAR INSULIN GIVEN TO PATIENT. OFFERED FURTHER ASSISTANCE, WILL MONITOR IV SITE.
[2018-06-16 12:32] VITALS: BP 105/72
--- NOTE | 2018-06-16 12:48 | NUR ---
PATIENT HAS COMPLAINTS OF PAIN IN L ARM. DAUGHTER STATES THAT SHE MIGHT HAVE SLEPT ON, "IT HAS HAPPENED BEFORE". STATES 5-10/14. PRN TYLENOL GIVEN. R AC FLUSHES WELL, IV REMOVED, CATHERTER INTACT. PATIENT STATES IT WAS STILL ITCHY. LUNCH TRAY SERVED.
--- NOTE | 2018-06-16 14:29 | NUR ---
DR DEL VALLE AT BEDSIDE TO SPEAK WITH PATIENT AND FAMILY. DR DEL VALLE STATED THAT PATIENT CARDIZEM PO DOSE WILL BE INCREASED. PATIENT TO HAVE PHYSICAL THERAPY TODAY OR TOMORROW. PATIENT AND FAMILY NOTIFIED THAT PATIENT WILL STAY IN UNIT FOR AT LEAST ONE MORE NIGHT. PATIENT IN BED RESTING, CALL LIGHT IN REACH, NO RESPIRATORY DISTRESS NOTED, FAMILY AT BEDSIDE.
--- NOTE | 2018-06-16 15:25 | NUR ---
PATIENT IN BED RESTING. NO SIGNS OF RESPIRATORY DISTRESS, BP 134/62, HR @ 98. PO MEDICATIONS GIVEN W APPLESAUCE, TOLERATED. ASSIST W BEDSPAN, VOID ONLY. CALL LIGHT IN REACH, FAMILY AT BEDSIDE.
--- NOTE | 2018-06-16 15:59 | NUR ---
PATIENT IN BED, RT CHAMP PRESENT, BREATHING TREATMENT GIVEN. NO SIGNS OF DISCOMFORT. WILL CONTINUE TO MONITOR.
--- NOTE | 2018-06-16 17:12 | NUR ---
PATIENT IN BED RESTING, STATING THAT HER LEG STILL FEELS COLD. SKIN, WARM, DRY, PULSES PRESENT. WILL CONTINUE TO MONITOR. ACCUCHECK RESULT: 304, 12 U REGULAR INSULIN GIVEN SQ. CALL LIGHT IN REACH, FAMILY AT BEDSIDE.
--- NOTE | 2018-06-16 18:41 | NUR ---
PATIENT IN BED RESTING. NO SIGNS OF RESPIRATORY DISTRESS. PATIENT CONTINUES TO STATE THAT HER R LEG "IS COLD". SKIN IS WARM, DRY, PINK. PEDAL PULSES PRESENT. DENIES PAIN. DR DEL VALLE AWARE. CONTINUE TO MONITOR AND WILL ENDORSE TO ONCOMING NURSE. FAMILY AT BEDSIDE. HR CURRENTLY 75.
[2018-06-16 19:30] VITALS: BP 120/48
--- NOTE | 2018-06-16 19:30 | NUR ---
RECEIVED PT AWAKE ALERT AND VERBALLY RESPONSIVE.TOLERATING ROOMAIR WITH O2 SAT @ 96%NO COUGHING/CONGESTION NOTED.DENIES CHESTPAIN AT THIS TIME.BP 120/48 MMHG,HR 68.APPEARS ANXIOUS ABOUT HER LEG BEING COLD.APPLIED WARM BLANKETS OVER LEGS AND ELEVATED ON A PILLOW AT THIS TIME.FAMILY AT BEDSIDE AND SUPPORTIVE OF CARE.WILL CONTINUE TO MONITOR.
[2018-06-17] VITALS (7 sets, daily range): BP systolic 113–142; BP diastolic 53–68
--- NOTE | 2018-06-17 04:44 | NUR ---
PT SLEPT WELL WITH GRAND DAUGHTER AT BEDSIDE.AMBIEN 5 MG GIVEN FOR INSOMIA WITH GOOD RESULT.DENIES CHESTPAIN ALL NIGHT,HR RANGES FROM 70'-90'S.BEDPAN OFFERED REQUESTED.ALL NEEDS MET.WILL CONTINUE TO MONITOR.
[2018-06-17] MEDS ORDERED: BET80 PO (06:33)
[2018-06-17] MEDS ORDERED: LOP50 PO (06:34)
[2018-06-17] MEDS ORDERED: CARCD120 PO (06:35)
[2018-06-17] MEDS ORDERED: DIG125 PO (06:36)
[2018-06-17] MEDS ORDERED: LOV60I SC (06:36)
[2018-06-17] MEDS ORDERED: COUMADIN2 MG PO (06:37)
[2018-06-17 06:52] LABS: CALCIUM 8.8 mg/dL (8.5-10.1); CARBON DIOXIDE 27.5 mmol/L (21-32); CHLORIDE SERUM 101 mmol/L (98-107); CREATININE SERUM 0.7 mg/dL (0.6-1.0); GLUCOSE SERUM 191 mg/dL (74-106); MAGNESIUM 1.8 mg/dL (1.8-2.4); POTASSIUM SERUM 4.1 mmol/L (3.5-5.1); SODIUM SERUM 137 mmol/L (136-145)
[2018-06-17 07:27] LABS: BASOPHIL % 1.3 % (0-2); PLATELET COUNT 336 x10^3mcL (130-400); RED CELL DISTRIBUTION WIDTH 15.1 % (11.5-14.5)
--- NOTE | 2018-06-17 08:00 | NUR ---
RECEIVED PATIENT A/A/O X3; HX OF CVA W/ LT SIDE WEAKNESS AND LT FACIAL DROOP. BUT TOLERATED PUREED DIET BY FEEDING AND ABLE TO MAKE NEEDS KNOWN. TELE#3 A FIB; HR = 90'S TO 100'S. DENIED CHEST PAIN. NO RESP DISTRESS ON RA. BED RESTING, OOB W/ PHYSICAL THERAPIST. IVHL'D TO RFA. REDNESS TO BUTTOCKS SUBSIDING. MAX ASSIST FOR ADL'S, NO C/O PAIN NOW. CALL LIGHT IN REACH. FAMILY AT BED SIDE.
--- NOTE | 2018-06-17 12:35 | NUR ---
UNABLE TO SEE PATIENT TODAY FOR P.T., WILL BE D/C TODAY.
--- NOTE | 2018-06-17 14:54 | NUR ---
PER DR DEL VALLE TO DISCONTINUE PROVIGIL. ATTENDING NURSE-ROLDAN SAMS.
--- NOTE | 2018-06-17 18:23 | NUR ---
CONDITION STABLE, NO SIGNIFICANT CHANGE. VOID VIA BEDPAN. NO BM THIS SHIFT. ENDORSED CARE TO NOC NURSE.
--- NOTE | 2018-06-17 18:56 | NUR ---
DR MENEZES NOTIFIED THAT PATIENT IS NOT GOING TO [facility] DUE TO UNAVAILABLE TRANSPORTATION. NO NEW ORDERS RECEIVED.
--- NOTE | 2018-06-17 19:56 | NUR ---
RECEIVED PATIENT IN BED AWAKE, ALERT AND ORIENTED WITH NO SIGN OF ACUTE DISTRESS. BREATHING EASY AND NONLABOR SATTING AT 98% RA. TELE# 3 AFIB WITH A FLUTTER ON MONITOR, DENIES CHESTPAIN. ABDOMEN SOFT AND NONTENDER WITH ACTIVE BS. HEPLOCK TO RFA FLUSHED WITH NS. WILL CONTINUE TO MONITOR. FAMILY MEMBERS AT BEDSIDE.
--- NOTE | 2018-06-18 00:05 | NUR ---
AWAKE AND VOIDED ASSISTED TO BEDSIDE COMMODE. WILL CONTINUE TO MONITOR.
--- NOTE | 2018-06-18 01:59 | NUR ---
APPEARS SLEEPING AT THIS TIME. BREATHING EASY AND NONLABOR. GRANDAUGHTER AT BEDSIDE.
--- NOTE | 2018-06-18 05:12 | NUR ---
CHECKED AT INTERVALS FOR NEEDS AND SAFETY. ASSISTED TO BEDSIDE COMMODE X3 AND VOIDED. ALL NEEDS ATTENDED.
[2018-06-18 06:10] VITALS: BP 127/57
[2018-06-18 06:51] LABS: CALCIUM 9.3 mg/dL (8.5-10.1); CARBON DIOXIDE 27.3 mmol/L (21-32); CHLORIDE SERUM 102 mmol/L (98-107); CREATININE SERUM 0.7 mg/dL (0.6-1.0); GLUCOSE SERUM 218 mg/dL (74-106); MAGNESIUM 1.6 mg/dL (1.8-2.4); SODIUM SERUM 139 mmol/L (136-145)
--- NOTE | 2018-06-18 08:00 | NUR ---
ALERT/ORIENTED X3. ABLE TO MADE NEEDS KNOWN. HX OF CVA W/ LT SIDE WEAKNESS AND LT FACIAL DROOP. TELE#3 A FIB; HR = 90'S TO 100'S; DENIED CHEST PAIN. NO RESP DISTRESS ON RA. O2 SAT 98%. TOLERATED PUREED DIET BREAKFAST. OUT OF BAD WITH PHYSICAL THERAPIST. IVHL'D TO RFA. DENIED PAIN. PATIENT EASY TO ANXIETY. XANAX 0.25MG PO GIVEN PER ORDER. REDNESS TO BUTTOCK SUBSIDING. NO OPENED WOUND SEEN. STATED NO BM X 3 DAYS. MOM PO GIVEN. CALL LIGHT IN ERACH. FAMILY AT BED SIDE.
[2018-06-18 09:25] VITALS: BP 122/68
--- NOTE | 2018-06-18 11:11 | NUR ---
PATIENT WOULD BE D/C'D TO [facility], SNF AT 1230. REPORT GIVEN TO MEERA, NURSING NIGHT CLERK.
--- NOTE | 2018-06-18 12:02 | NUR ---
REPORTED TO DR JANENE Tinoco/ PATIENT'S MAG 1.6; NEW ORDER OF MAG-OX 400MG PO ORDERED.
--- NOTE | 2018-06-18 13:18 | NUR ---
D/C TO [facility], SNF VIA MEDICAL TRANSPORTATION. IV D/C'D. CONDITION STABLE.
--- NOTE | 2018-06-18 14:35 | NUR ---
PHYSICAL THERAPY DAILY NOTES CO-SIGN All documentation done by the [facility] for 06/18/18 has been reviewed. I agree with the documentation. Reviewed/Co-Signed by: Julianna Braun PT Documentation Done by:LOGAN JONES
--- NOTE | 2018-06-18 16:08 | NUR ---
Echo not done pt. Discharged
== END 2018-06-18 13:15 | DRG 309 ==
LOC: ED 04:55 → DU 07:04
PROVIDERS: Emergency Medicine; Internal Medicine; ADMIT Internal Medicine Pulmonary Disease
DX: I48.91 Unspecified atrial fibrillation (principal); I24.9 Acute ischemic heart disease, unspecified; I50.42 Chronic combined systolic (congestive) and diastolic (congestive) heart failure; I69.354 Hemiplegia and hemiparesis following cerebral infarction affecting left non-dominant side; E11.9 Type 2 diabetes mellitus without complications; F41.8 Other specified anxiety disorders; E83.42 Hypomagnesemia; I10 Essential (primary) hypertension; E78.5 Hyperlipidemia, unspecified; I36.1 Nonrheumatic tricuspid (valve) insufficiency; I34.0 Nonrheumatic mitral (valve) insufficiency; Z68.29 Body mass index [BMI] 29.0-29.9, adult; Z79.01 Long term (current) use of anticoagulants; Z85.09 Personal history of malignant neoplasm of other digestive organs
CPT/HCPCS: 82962; 83880; 85378; 97110-GP; 97112-GP; 97116-GP; J1160; J1644; J1815; J2060; J3475; J3490; J7040; J7620; Q0092; Q9967

== ENCOUNTER 2019-02-18 06:14 | Inpatient (IN) | payer OTHER ==
[~2019-02-18] VITALS: Ht 162.6 cm; Wt 71.2 kg
[2019-02-18] VITALS (7 sets, daily range): BP systolic 89–127; BP diastolic 28–59; Ht 162.6 cm; Wt 71.2 kg
[~2019-02-18 06:14] MED LIST changes: +APAP500 MG; +APAP500 MG PO; +ASPIR 8181 MG PO; +CARVEDILOL6.25 M1 PO; +COUMADIN2 MG PO; +CYMBALTA20 M1 PO; +DUL10S; +DUL10S RC; +DULOXETINE30 MG PO; +FLEET ENEMA135 ML RC; +GOOD SENSE ASPI81 M3 PO; +LANTUS SOLOS100 U/M1 SQ; +LIPI20 PO; +LOP50 PO; +LOV60I SC; +METAMUCIL660 GM PO; +METP PO; +MIRALAX17 GM/Dose PO; +MOM PO; +NORCO1 TA2 PO; +PROVIGIL100 MG PO; +XOPENEX1.25 MG/3 NEB
[2019-02-18 06:56] LABS: BASOPHIL % 0.4 % (0-2); PLATELET COUNT 267 x10^3mcL (130-400)
[2019-02-18 07:02] LABS: CALCIUM 7.9 mg/dL (8.5-10.1); CHLORIDE SERUM 107 mmol/L (98-107); CREATININE SERUM 0.8 mg/dL (0.6-1.0); GLUCOSE SERUM 341 mg/dL (74-106); SODIUM SERUM 141 mmol/L (136-145)
[2019-02-18 07:07] LABS: ALKALINE PHOSPHATASE 92 U/L (46-116); ALT/SGPT 23 U/L (14-59); AST/SGOT 14 U/L (15-37); BILIRUBIN TOTAL 0.3 mg/dL (0.20-1.00)
[2019-02-18 07:08] LABS: RED CELL DISTRIBUTION WIDTH 14.6 % (11.5-14.5)
[2019-02-18 07:14] LABS: ALBUMIN 2.8 g/dL (3.4-5.0); TOTAL PROTEIN, SERUM 5.9 g/dL (6.4-8.2)
[2019-02-18] MEDS ORDERED: METFORMIN HCL1000 MG PO (09:45)
[2019-02-18] MEDS ORDERED: LIPI20 PO (09:45)
[2019-02-18] MEDS ORDERED: ASPIR 8181 MG PO (09:45)
[2019-02-18] MEDS ORDERED: METOPROLOL TART50 MG PO (09:45)
[2019-02-18] MEDS ORDERED: DILTIAZEM HCL120 M2 PO (09:46)
[2019-02-18] MEDS ORDERED: ELIQUIS5 MG PO (09:46)
[2019-02-18] MEDS ORDERED: DIG125 PO (09:46)
[2019-02-18 14:40] LABS: BASOPHIL % 0.4 % (0-2); PLATELET COUNT 239 x10^3mcL (130-400)
[2019-02-18 14:41] LABS: RED CELL DISTRIBUTION WIDTH 15.3 % (11.5-14.5)
[2019-02-19 04:31] LABS: BASOPHIL % 0.8 % (0-2); PLATELET COUNT 165 x10^3mcL (130-400)
[2019-02-19 04:32] LABS: RED CELL DISTRIBUTION WIDTH 15.1 % (11.5-14.5)
[2019-02-19 04:36] LABS: CARBON DIOXIDE 27.7 mmol/L (21-32); CHLORIDE SERUM 112 mmol/L (98-107); CREATININE SERUM 0.5 mg/dL (0.6-1.0); GLUCOSE SERUM 194 mg/dL (74-106); POTASSIUM SERUM 4.3 mmol/L (3.5-5.1); SODIUM SERUM 144 mmol/L (136-145)
[2019-02-19 04:43] LABS: MAGNESIUM 1.3 mg/dL (1.8-2.4)
[2019-02-19 05:07] VITALS: BP 92/35
[2019-02-19 09:03] VITALS: BP 103/47
[2019-02-19 10:30] VITALS: BP 127/57
[2019-02-19 12:48] VITALS: BP 110/83
[2019-02-19 16:36] VITALS: BP 114/63
[2019-02-19 21:32] VITALS: BP 116/53
[2019-02-20] VITALS (10 sets, daily range): BP systolic 89–129; BP diastolic 25–53
[2019-02-20 06:37] LABS: CALCIUM 7.8 mg/dL (8.5-10.1); CARBON DIOXIDE 26.2 mmol/L (21-32); CHLORIDE SERUM 113 mmol/L (98-107); CREATININE SERUM 0.5 mg/dL (0.6-1.0); GLUCOSE SERUM 224 mg/dL (74-106); MAGNESIUM 1.8 mg/dL (1.8-2.4); POTASSIUM SERUM 4.1 mmol/L (3.5-5.1); SODIUM SERUM 146 mmol/L (136-145)
[2019-02-20 06:54] LABS: PLATELET COUNT 167 x10^3mcL (130-400)
[2019-02-20 07:20] LABS: RED CELL DISTRIBUTION WIDTH 15.5 % (11.5-14.5)
[2019-02-21 04:30] VITALS: BP 96/42
[2019-02-21 06:43] LABS: BASOPHIL % 0.7 % (0-2); PLATELET COUNT 144 x10^3mcL (130-400)
[2019-02-21 06:49] LABS: CARBON DIOXIDE 28.1 mmol/L (21-32); CHLORIDE SERUM 111 mmol/L (98-107); CREATININE SERUM 0.6 mg/dL (0.6-1.0); GLUCOSE SERUM 222 mg/dL (74-106); MAGNESIUM 1.6 mg/dL (1.8-2.4); SODIUM SERUM 144 mmol/L (136-145)
[2019-02-21 07:01] LABS: RED CELL DISTRIBUTION WIDTH 15.3 % (11.5-14.5)
[2019-02-21 07:50] VITALS: BP 116/71
[2019-02-21 12:10] VITALS: BP 103/34
[2019-02-21 15:41] VITALS: BP 129/61
[2019-02-21] MEDS ORDERED: ELIQUIS2.5 MG PO (17:36)
== END 2019-02-21 19:00 | disposition home health service (06) | DRG 813 ==
LOC: ED 06:14 → DU 07:19
PROVIDERS: Internal Medicine Gastroenterology; Specialist; ADMIT Internal Medicine Pulmonary Disease
PROC: 0DJ08ZZ Inspection of Upper Intestinal Tract, Via Natural or Artificial Opening Endoscopic (ICD-10-PCS; principal; 2019-02-19 12:00)
PROC: 0DJD8ZZ Inspection of Lower Intestinal Tract, Via Natural or Artificial Opening Endoscopic (ICD-10-PCS; 2019-02-19 12:00)
PROC: 0DBH8ZZ Excision of Cecum, Via Natural or Artificial Opening Endoscopic (ICD-10-PCS; 2019-02-20)
PROC: 0DBF8ZZ Excision of Right Large Intestine, Via Natural or Artificial Opening Endoscopic (ICD-10-PCS; 2019-02-20)
PROC: 0DBG8ZZ Excision of Left Large Intestine, Via Natural or Artificial Opening Endoscopic (ICD-10-PCS; 2019-02-20)
DX: D68.32 Hemorrhagic disorder due to extrinsic circulating anticoagulants (principal); R57.1 Hypovolemic shock; K92.2 Gastrointestinal hemorrhage, unspecified; I48.20 Chronic atrial fibrillation, unspecified; I69.354 Hemiplegia and hemiparesis following cerebral infarction affecting left non-dominant side; E11.65 Type 2 diabetes mellitus with hyperglycemia; D64.9 Anemia, unspecified; I10 Essential (primary) hypertension; Z79.01 Long term (current) use of anticoagulants; Z79.84 Long term (current) use of oral hypoglycemic drugs; Z85.09 Personal history of malignant neoplasm of other digestive organs; T45.515A Adverse effect of anticoagulants, initial encounter; Y92.018 Other place in single-family (private) house as the place of occurrence of the external cause
CPT/HCPCS: 43235; 45378; 82962; C9113; G0378; J1200; J1610; J2250; J2310; J2916; J3010; J3475; J3490; J7030; J7042; J7050; P9016; Q0092